=== PATIENT | male | born 1945 | race Caucasian/White ===

== ENCOUNTER → 2021-04-13 | Outpatient (CLI) | payer MEDICARE, OTHER | LOC: US 07:43 | DX: Z13.6 Encounter for screening for cardiovascular disorders (principal) | CPT/HCPCS: 76706 ==

== ENCOUNTER → 2022-05-05 | Outpatient (CLI) | payer MEDICARE, OTHER | LOC: ECHO 08:53 → NM 10:00 | DX: I10 Essential (primary) hypertension (principal) | CPT/HCPCS: ECHO; 93017; 93306 ==